=== PATIENT | male | born 1950 | race Caucasian/White ===

== ENCOUNTER → 2017-01-26 | Outpatient (CLI) | payer OTHER ==
[~2017-01-26] MED LIST: ACET-1757 PO; ALLO300T PO; ASPI-496 PO; DIGO250T PO; DUTA0.5C PO; FAMO-79 PO; FELO5TAB PO; METO50TA82 PO; REGADENOSON 0.4 MG/5 ML SYRINGE ONE; RIVA20TA PO
== END | disposition home or self-care (01) ==
LOC: CFH 08:19
PROVIDERS: ATTEND Internal Medicine Cardiovascular Disease
DX: I48.0 Paroxysmal atrial fibrillation (principal); I10 Essential (primary) hypertension; E11.9 Type 2 diabetes mellitus without complications
CPT/HCPCS: 78452; 93017; A9502; J2785

== ENCOUNTER → 2020-01-08 | Outpatient (CLI) | payer MEDICARE, OTHER ==
[~2020-01-08] MED LIST changes: -ACET-1757 PO; +ACET-2065 PO; -DIGO250T PO; +DIGO250T3 PO; -FELO5TAB PO; +FELO5TAB4 PO
== END | disposition home or self-care (01) ==
LOC: CFH 10:08
PROVIDERS: ATTEND Internal Medicine Cardiovascular Disease
DX: I35.8 Other nonrheumatic aortic valve disorders (principal); I48.0 Paroxysmal atrial fibrillation; I10 Essential (primary) hypertension; E11.9 Type 2 diabetes mellitus without complications; Z79.01 Long term (current) use of anticoagulants
CPT/HCPCS: 78452; 93017; 93306; A9502; J2785

== ENCOUNTER → 2020-09-10 | Outpatient (CLI) | payer MEDICARE, OTHER ==
[~2020-09-10] MED LIST changes: -REGADENOSON 0.4 MG/5 ML SYRINGE ONE
== END | disposition home or self-care (01) ==
LOC: RAD 14:25
PROVIDERS: ATTEND Orthopaedic Surgery
DX: M47.815 Spondylosis without myelopathy or radiculopathy, thoracolumbar region (principal); M48.061 Spinal stenosis, lumbar region without neurogenic claudication
CPT/HCPCS: 72110